=== PATIENT | female | born 1980 | race Hispanic/Latino ===

== ENCOUNTER 2018-03-26 10:46 | Emergency (ER) | payer SELFPAY ==
[2018-03-26] MEDS ORDERED: Promethazine HCl 25 MG/ML VIAL ONE (11:26)
[2018-03-26] MEDS ORDERED: diphenhydrAMINE 50 MG/ML VIAL ONE (11:26)
[2018-03-26] MEDS ORDERED: Meclizine HCl 25 MG TAB ONE (12:31)
== END 2018-03-26 13:01 | disposition home or self-care (01) ==
LOC: ERS 10:46
DX: R42 Dizziness and giddiness (principal); R51 Headache; G43.909 Migraine, unspecified, not intractable, without status migrainosus
CPT/HCPCS: 96365; 96375; J1200; J2550